=== PATIENT | male | born 1975 | race Caucasian/White ===

== ENCOUNTER 2021-09-13 17:36 | Inpatient (IN) | payer BC, OTHER ==
[2021-09-13] MEDS ORDERED: Furosemide 40 MG/4 ML VIAL IVPUSH ONE ×2 (18:20→19:02)
[2021-09-13] MEDS ORDERED: Sodium Chloride 0.9% 10 ML Syringe FLUSH PRN (18:20)
[2021-09-14] MEDS ORDERED: Furosemide 40 MG/4 ML VIAL IVPUSH ONE (09:42)
[2021-09-14] MEDS ORDERED: FLU Vacc QS2021-22 36MOS UP/PF 60 MCG/0.5 ML Syringe IM ONE (10:00)
[2021-09-14] MEDS: Enoxaparin 40 MG/0.4 ML Syringe SUBCUT SCH ×2 (11:29→21:00)
[2021-09-14] MEDS: Furosemide 40 MG/4 ML VIAL IVPUSH SCH (14:35)
[2021-09-15] MEDS: Furosemide 40 MG/4 ML VIAL IVPUSH SCH (05:41)
[2021-09-15] MEDS: Enoxaparin 40 MG/0.4 ML Syringe SUBCUT SCH ×2 (09:49→21:12)
[2021-09-15] MEDS: Empagliflozin 10 MG Tab PO SCH (09:50)
[2021-09-15] MEDS: Spironolactone 25 MG Tab PO SCH (09:50)
[2021-09-15] MEDS: Sacubitril/Valsartan 1 EACH Tablet PO SCH ×2 (10:18→21:15)
[2021-09-15] MEDS: Furosemide 100 MG/10 ML SDV IVPUSH SCH (14:18)
[2021-09-16] MEDS: Furosemide 100 MG/10 ML SDV IVPUSH SCH ×2 (06:50→13:38)
[2021-09-16] MEDS: Sacubitril/Valsartan 1 EACH Tablet PO SCH ×2 (09:37→21:00)
[2021-09-16] MEDS: Spironolactone 25 MG Tab PO SCH (09:38)
[2021-09-16] MEDS: Empagliflozin 10 MG Tab PO SCH (09:39)
[2021-09-16] MEDS: Enoxaparin 40 MG/0.4 ML Syringe SUBCUT SCH ×2 (09:39→21:00)
[2021-09-17] MEDS: Furosemide 100 MG/10 ML SDV IVPUSH SCH ×2 (05:27→13:19)
[2021-09-17] MEDS: Sacubitril/Valsartan 1 EACH Tablet PO SCH (08:24)
[2021-09-17] MEDS: Enoxaparin 40 MG/0.4 ML Syringe SUBCUT SCH (08:24)
[2021-09-17] MEDS: Spironolactone 25 MG Tab PO SCH (08:25)
[2021-09-17] MEDS: Empagliflozin 10 MG Tab PO SCH (08:26)
== END 2021-09-17 15:08 | disposition home or self-care (01) | DRG 281 ==
LOC: JD.ED 17:36 → JD.MS 09-14 02:06
PROVIDERS: ADMIT Pediatrics; ATTEND Pediatrics
DX: I11.0 Hypertensive heart disease with heart failure (principal); I21.A1 Myocardial infarction type 2; E87.2 Acidosis; Z68.43 Body mass index [BMI] 50.0-59.9, adult; I50.9 Heart failure, unspecified; E66.01 Morbid (severe) obesity due to excess calories; R06.83 Snoring; Z79.899 Other long term (current) drug therapy; Z98.890 Other specified postprocedural states; Z23 Encounter for immunization
CPT/HCPCS: 36415; 36600; 71045; 71045-26; 80048; 80053; 82803; 83735; 83880; 84484; 85025; 90686; 93005; 93010; 93306; 93970; 93970-26; 94660; 94760; 94761; 96374; 96376; 99285; 99285-25; A9270-GY; G0008; J1650; J1940